=== PATIENT | female | born 1930 | race Caucasian/White ===

== ENCOUNTER 2019-06-01 11:32 | Observation (INO) | payer MEDICARE ==
[2019-06-01 11:52] LABS: ABSOLUTE LYMPHOCYTES (AUTO) 1.2 10^3/uL (0.5-4.7); ABSOLUTE MONOCYTES (AUTO) 0.7 10^3/uL (0.1-1.4); ABSOLUTE NEUT (AUTO) 6.6 10^3/uL (1.7-8.2); BASOPHILS % (AUTO) 0.5 % (0-2); EOSINOPHILS % (AUTO) 0.1 % (0-6); HEMATOCRIT 33.6 % (36.0-47.0); HEMOGLOBIN 11.7 g/dL (12.0-15.5); LYMPHOCYTES % (AUTO) 14.1 % (13-45); MEAN CORPUSCULAR HGB CONC 34.8 g/dL (32.0-36.0); MEAN CORPUSCULAR VOLUME 98 fl (80-97); MONOCYTES % (AUTO) 8.7 % (3-13); PLATELET COUNT 290 10^3/uL (150-450); RED BLOOD COUNT 3.44 10^6/uL (3.72-5.28); SEGMENTED NEUTROPHILS % (AUTO) 76.6 % (42-78); TOTAL CELLS COUNTED % (AUTO) 100 %; WHITE BLOOD COUNT 8.6 10^3/uL (4.0-10.5)
[2019-06-01 11:55] LABS: INTERNATIONAL RATION (INR) 1.19
[2019-06-01 11:56] LABS: PARTIAL THROMBOPLASTIN TIME 31.6 SEC (23.5-35.8)
[2019-06-01 12:01] LABS: PROTHROMBIN TIME 15.2 SEC (11.4-15.4)
--- NOTE | 2019-06-01 12:02 | RADIOLOGY REPORT (SQ) ---
EXAM DESCRIPTION: CT HEAD WITHOUT COMPLETED DATE/TIME: 06/01/2019 11:46 am REASON FOR STUDY: stroke s/s COMPARISON: 11/16/2014 TECHNIQUE: Axial images acquired through the brain without intravenous contrast. Images reviewed wi th bone, brain and subdural windows. Additional sagittal and coronal reconstructions were generated. Images stored on PACS. All CT scanners at this facility use dose modulation, iterative reconstruction, and/or weight based d osing when appropriate to reduce radiation dose to as low as reasonably achievable (ALARA). [facility]: Dose Right [facility]: CareDose [facility]: Dose Right [facility]: Teradose 4D [facility]: [place] RADIATION DOSE: 480 mGy cm LIMITATIONS: None. FINDINGS: VENTRICLES: Normal size and contour. CEREBRUM: No masses. No hemorrhage. No midline shift. 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 CEREBELLUM: No masses. No hemorrhage. No alteration of density. No evidence for acute infarction. EXTRAAXIAL SPACES: No fluid collections. No masses. ORBITS AND GLOBE: No intra- or extraconal masses. Normal contour of globe without masses. CALVARIUM: No fracture. PARANASAL SINUSES: No fluid or mucosal thickening. SOFT TISSUES: No mass or hematoma. OTHER: No other significant finding. IMPRESSION: No CT evidence of acute stroke or hemorrhage. There is an unchanged remote infarction of the posterior right MCA territory with encephalomalacia of the parietal and temporal lobes. Findings reported to the emergency department by the CORE critical findings reporting system at the [facility] of interpretation. EVIDENCE OF ACUTE STROKE: NO. COMMENT: Quality ID # [id number]: Final reports with documentation of one or more dose reduction techniques (e.g., Automated exposure control, adjustment of the mA and/or kV according to patient size, use of iterative reconstruction technique) TECHNICAL DOCUMENTATION: JOB ID: [id number] [email or web address] ([email or web address])- All Rights Reserved Reading location - IP/workstation name: [email or web address]
[2019-06-01 12:11] LABS: ALBUMIN 4.3 g/dL (3.5-5.0); ALKALINE PHOSPHATASE 94 U/L (38-126); ANION GAP 8 (5-19); ASPARTATE AMINO TRANSFERASE 30 U/L (14-36); BILIRUBIN,DIRECT 0.3 mg/dL (0.0-0.4); BILIRUBIN,TOTAL 1.1 mg/dL (0.2-1.3); BLOOD UREA NITROGEN 26 mg/dL (7-20); CALCIUM 9.8 mg/dL (8.4-10.2); CARBON DIOXIDE 30 mmol/L (22-30); CHLORIDE 102 mmol/L (98-107); CREATINE KINASE 32 U/L (30-135); GLUCOSE 99 mg/dL (75-110); POTASSIUM 4.1 mmol/L (3.6-5.0); TOTAL PROTEIN 7.8 g/dL (6.3-8.2)
[2019-06-01 12:23] LABS: CREATINE KINASE MB 1.85 ng/mL (<4.55)
[2019-06-01 12:25] LABS: TROPONIN I 0.119 ng/mL
--- NOTE | 2019-06-01 13:05 | RADIOLOGY REPORT (SQ) ---
EXAM DESCRIPTION: CHEST SINGLE VIEW COMPLETED DATE/TIME: 06/01/2019 12:53 pm REASON FOR STUDY: stroke s/s COMPARISON: AP chest 11/16/2014 EXAM PARAMETERS: NUMBER OF VIEWS: One view. TECHNIQUE: Single frontal radiographic view of the chest acquired. RADIATION DOSE: NA LIMITATIONS: None. FINDINGS: LUNGS AND PLEURA: Blunting of the right lateral costophrenic sulcus from trace fluid or mi nimal right basilar airspace disease. Remainder of the lungs are otherwise well inflated and clear. No pneumothorax. No left pleural effu lee. MEDIASTINUM AND HILAR STRUCTURES: No masses. Contour normal. HEART AND VASCULAR STRUCTURES: Old sternotomy for aortic valve replacement. Mild cardiomegaly BONES: No acute findings. Old healed left rib fractures HARDWARE: Left-sided single lead pacemaker OTHER: No other significant finding. IMPRESSION: Trace fluid in the right lateral costophrenic sulcus Old sternotomy for aortic valve replacement. Mild stable cardiomegaly TECHNICAL DOCUMENTATION: JOB ID: [id number] [employer]- All Rights Reserved Reading location - IP/workstation name: [email or web address]
--- NOTE | 2019-06-01 13:59 | ER Document Report ---
Entered by HARI MICHEL SCRIBE 06/01/19 [id number] Acting as scribe for:TRACE FOSTER MD ED General - General Chief Complaint: S/S of Possible Stroke Stated Complaint: SLURRED SPEECH Time Seen by Provider: 06/01/19 12:58 Primary Care Provider: JASON DILLARD DO [Primary Care Provider] - Follow up as needed Mode of Arrival: Medic Information source: Patient, Relative, Emergency Med Personnel Notes: This 88 year old female patient brought in by EMS presents to the ED today with complaints of stroke-like symptoms that occurred around 10:00 AM this morning per the jarrett at bedside. Grandson states that when he woke up this morning, the patient was in the kitchen refilling her water and acting normally. Grandson states that the patient was incomprehensible and speaking "gibberish" when asked if she wanted tea moments later. Grandson notes that the tea was running down the right side of the patient's face when she began to drink and he was concerned of a possible stroke so he called EMS. Upon EMS arrival, the patient still presented with the symptoms per the grandson. EMS reports that the symptoms started to clear up en route to the ED. Upon arrival to the ED, patient states that she felt like she had the words to speak to her grandson, but she couldn't get them out. Grandson reports that the patient has bilateral leg swelling that is consistent with her baseline because the patient ambulates a lot with her walker. Grandson states that the patient recently relocated from [place] and that he is the primary customer care specialist.Grandson states that the patient did not take her coumadin yesterday or today. The patient states that she feels back to normal at this time. She did not have any chest pain or shortness of breath during the episode. At this time the patient's neurological symptoms have completely resolved and there are no deficits. She is not a TPA candidate. TRAVEL OUTSIDE OF THE [place] IN LAST 30 DAYS: No - Related Data Allergies/Adverse Reactions: acetaminophen [From Tylenol] Allergy (Verified 11/16/14 18:07) Penicillins Allergy (Verified 11/16/14 18:07) red dye [Red Dye] Allergy (Verified 11/16/14 21:33) Past Medical History - General Information source: Patient, Relative, [facility] Records - Social History Smoking Status: Never Smoker Cigarette use (# per day): No Chew tobacco use (# tins/day): No Smoking Education Provided: No Frequency of alcohol use: None Drug Abuse: None Lives with: Family Family History: Reviewed & Not Pertinent Patient has suicidal ideation: No Patient has homicidal ideation: No - Past Medical History Cardiac Medical History: Reports: Hx Congestive Heart Failure, Hx Heart Attack, Hx Hypertension Past Surgical History: Reports: Hx Cardiac Catheterization, Hx Cardiac Surgery - Mechanical aortic valve August 2002, Hx Cholecystectomy, Hx Coronary Artery Bypass Graft - 2000, Hx Hysterectomy, Hx Orthopedic Surgery - Right knee replacement, Hx Pacemaker - August [address] [facility], Hx Vascular Surgery - aorta Review of Systems - Review of Systems Constitutional: No symptoms reported EENT: No symptoms reported Cardiovascular: No symptoms reported Respiratory: No symptoms reported Gastrointestinal: No symptoms reported Genitourinary: No symptoms reported Female Genitourinary: No symptoms reported Musculoskeletal: See HPI, Leg swelling Skin: No symptoms reported Hematologic/Lymphatic: No symptoms reported Neurological/Psychological: See HPI, Other - Stroke-like symptoms -: Yes All other systems reviewed and negative Physical Exam - Vital signs Vitals: Pulse Ox 89 L 06/01/19 11:40 - General General appearance: Other - Demented - HEENT Head: Normocephalic, Atraumatic Eyes: Normal Pupils: PERRL Neck: No: Carotid bruit - Respiratory Respiratory status: No respiratory distress Chest status: Nontender Breath sounds: Normal Chest palpation: Normal - Cardiovascular Rhythm: Regular - with mechanical valve click Heart sounds: Normal auscultation Murmur: Yes - Systolic - Abdominal Inspection: Normal Distension: No distension Bowel sounds: Normal Tenderness: Nontender Organomegaly: No organomegaly - Back Back: Normal, Nontender - Extremities General upper extremity: Normal inspection General lower extremity: Tender - RLE is firm and tender compared to LLE, Edema - Edema present bilaterally, more on the right LE - Neurological Neuro grossly intact: Yes Orientation: AAOx4 Notes: No motor weakness. - Psychological Associated symptoms: Other - Demented - Skin Skin Temperature: Warm Skin Moisture: Dry Skin Color: Normal Course - Vital Signs Vital signs: Temp Pulse Resp BP Pulse Ox 98.0 F 75 26 H 158/67 H 99 06/01/19 12:08 06/01/19 11:59 06/01/19 12:01 06/01/19 12:01 06/01/19 12:01 - Laboratory Result Diagrams: 06/01/19 11:03 06/01/19 11:03 Laboratory results interpreted by me: 06/01/19 06/01/19 06/01/19 11:03 11:03 13:49 RBC 3.44 L Hgb 11.7 L Hct 33.6 L MCV 98 H MCH 34.0 H BUN 26 H Est GFR (MDRD) Non-Af 56 L Urine Protein 30 H Urine Urobilinogen 2.0 H - Diagnostic Test Radiology reviewed: Image reviewed, Reports reviewed - Chest x-ray shows mild stable cardiomegaly with old healed left rib fractures. CT scan of the head shows an old posterior right MCA territory CVA with encephalomalacia. No acute changes. - EKG Interpretation by Me EKG shows normal: [place], Intervals, QRS Complexes. abnormal: ST-T Waves - Inferior and lateral biphasic T waves new compared to 11/17/2014 Rate: Normal - 70 Rhythm: Other - Ventricular paced rhythm When compared to previous EKG there are: Changes noted - Biphasic inferior and lateral T waves which are new compared to 11/17/2014 Critical Care Note - Critical Care Note Total time excluding time spent on procedures (mins): 35 Discharge - Discharge Clinical Impression: Transient ischemic attack (TIA), [facility] aortic valve , Subtherapeutic international normalized ratio (INR) Condition: Stable Disposition: ADMITTED INPATIENT Admitting Provider: Ayesha (Hospitalist) Unit Admitted: IMCU Referrals: JASON DILLARD DO [Primary Care Provider] - Follow up as needed Scribe Attestation: 06/01/19 14:25 I personally performed the services described in the documentation, reviewed and edited the documentation which was dictated to the scribe in my presence, and it accurately records my words and actions. I personally performed the services described in the documentation, reviewed and edited the documentation which was dictated to the scribe in my presence, and it accurately records my words and actions.
[2019-06-01 14:27] LABS: APPEARANCE,URINE CLEAR; BILIRUBIN,URINE NEGATIVE (NEGATIVE); COLOR,URINE YELLOW; GLUCOSE, URINE NEGATIVE (NEGATIVE); KETONES,URINE NEGATIVE (NEGATIVE); LEUKOCYTE ESTERASE,URINE NEGATIVE (NEGATIVE); NITRITE,URINE NEGATIVE (NEGATIVE); PROTEIN,URINE 30 mg/dL (NEGATIVE); URINE SPECIFIC GRAVITY 1.015
--- NOTE | 2019-06-01 16:33 | PDOC H&P ---
History of Present Illness Admission Date/PCP: 06/01/19 15:24 JASON DILLARD DO Patient complains of: aphasia History of Present Illness: RAGHU PHAN is a 88 year old female with past medical history of aortic valve replacement ([facility]) in 2002 on Coumadin, pacemaker placement for unstable bradyarrhythmia in 2014, history of remote left leg DVT, CAD with prior CABG, CHF, dementia, history of right MCA CVA, hypertension and hyperlipidemia who was brought in due to speech difficulty. Patient's grandson/the POA is in the bedside. He reports that patient was apparently fine aside from having some nausea and an episode of vomiting yesterday. She was apparently well last night until around 10 in the morning today when she started sounding gibberish. Patient was also noted to have expressive aphasia. She reported she knew what to say but was unable to do so. There was no reported facial droop, sensory or motor weakness. Patient was brought in by EMS and deficits reportedly resolved in route to the ER. Upon encounter, patient's deficits have resolved. She has clear and fluent speech. No neurologic deficit appreciated on neuro examination. She denies chest pain, shortness of breath, dizziness or headache. 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 She does have a subtherapeutic INR. Grandson says that she might have missed 3 days of Coumadin as they left town. Past Medical History Cardiac Medical History: Reports: Congestive Heart Failure, Myocardial Infarction, Hypertension Psychiatric Medical History: Denies: Depression Past Surgical History Past Surgical History: Reports: Cardiac Catheterization, Cholecystectomy, Coronary Artery Bypass Graft - 2000, Hysterectomy, Orthopedic Surgery - Right knee replacement, Pacemaker - August [address] [facility], Vascular Surgery - aorta Social History Lives with: Family Smoking Status: Never Smoker Electronic Cigarette use?: No Frequency of Alcohol Use: None Hx Recreational Drug Use: No Hx Prescription Drug Abuse: No Family History Family History: Reviewed & Not Pertinent Parental Family History Reviewed: Yes - No premature CAD Children Family History Reviewed: No Sibling(s) Family History Reviewed.: No Medication/Allergy Home Medications: Metoprolol Succinate [Toprol Xl 25 mg Tab.sr] 25 mg PO DAILY 06/01/19 Sertraline HCl [Zoloft 50 mg Tablet] 50 mg PO DAILY 06/01/19 Warfarin Sodium [Coumadin 5 mg Tablet] 5 mg PO QHS 06/01/19 Aspirin [Aspirin 81 mg Chewable Tablet] 81 mg PO DAILY #30 tab.chew 06/02/19 Atorvastatin Calcium [Lipitor 20 mg Tablet] 20 mg PO QHS #30 tablet 06/02/19 Enoxaparin Sodium [Lovenox Inj 60 mg/0.6 ml Disp.syrin] 50 mg SUBCUT Q12 #10 disp.syrin 06/02/19 Allergies/Adverse Reactions: acetaminophen [From Tylenol] Allergy (Verified 11/16/14 18:07) Penicillins Allergy (Verified 11/16/14 18:07) red dye [Red Dye] Allergy (Verified 11/16/14 21:33) Review of Systems All systems: reviewed and no additional remarkable complaints except as stated - As mentioned in HPI Physical Exam Vital Signs: Temp Pulse Resp BP Pulse Ox 98.0 F 75 26 H 158/67 H 99 06/01/19 12:08 06/01/19 11:59 06/01/19 12:01 06/01/19 12:01 06/01/19 12:01 Intake & Output 05/31/19 06/01/19 06/02/19 06:59 06:59 06:59 Weight 118 lb 4.095 oz General appearance: PRESENT: no acute distress, well-developed, well-nourished Head exam: PRESENT: atraumatic, normocephalic Eye exam: PRESENT: conjunctiva pink, EOMI, PERRLA. ABSENT: scleral icterus Ear exam: PRESENT: normal external ear exam Mouth exam: PRESENT: moist, tongue midline Neck exam: ABSENT: carotid bruit, JVD, lymphadenopathy, thyromegaly Respiratory exam: PRESENT: clear to auscultation yomaira. ABSENT: rales, rhonchi, wheezes Cardiovascular exam: PRESENT: RRR. ABSENT: diastolic murmur, rubs, systolic murmur Pulses: PRESENT: normal dorsalis pedis pul GI/Abdominal exam: PRESENT: normal bowel sounds, soft. ABSENT: distended, guarding, mass, organolmegaly, rebound, tenderness Rectal exam: PRESENT: deferred Extremities exam: PRESENT: full ROM, pedal edema, +2 edema. ABSENT: calf tenderness, clubbing Neurological exam: PRESENT: alert, awake, oriented to person, oriented to place, oriented to time, oriented to situation, CN II-XII grossly intact. ABSENT: motor sensory deficit Results Laboratory Results: 06/01/19 11:03 06/01/19 11:03 06/01/19 06/01/19 06/01/19 11:03 11:03 13:49 WBC 8.6 RBC 3.44 L Hgb 11.7 L Hct 33.6 L MCV 98 H MCH 34.0 H MCHC 34.8 RDW 14.0 Plt Count 290 Seg Neutrophils % 76.6 Sodium 139.9 Potassium 4.1 Chloride 102 Carbon Dioxide 30 Anion Gap 8 BUN 26 H Creatinine 0.94 Est GFR ( Amer) > 60 Glucose 99 Calcium 9.8 Total Bilirubin 1.1 AST 30 Alkaline Phosphatase 94 Total Protein 7.8 Albumin 4.3 Urine Color YELLOW Urine Appearance CLEAR Urine pH 7.0 Ur Specific [place] 1.015 Urine Protein 30 H Urine Glucose (UA) NEGATIVE Urine Ketones NEGATIVE Urine Blood NEGATIVE Urine Nitrite NEGATIVE Ur Leukocyte Esterase NEGATIVE Urine WBC (Auto) 0 Urine RBC (Auto) 8 06/01/19 06/01/19 06/01/19 11:03 11:03 13:18 Creatine Kinase 32 CK-MB (CK-2) 1.85 Troponin I 0.119 0.099 Impressions: Chest X-Ray 06/01/19 11:40 IMPRESSION: Trace fluid in the right lateral costophrenic sulcus Old sternotomy for aortic valve replacement. Mild stable cardiomegaly Head CT 06/01/19 11:40 IMPRESSION: No CT evidence of acute stroke or hemorrhage. There is an unchanged remote infarction of the posterior right MCA territory with encephalomalacia of the parietal and temporal lobes. Findings reported to the emergency department by the CORE critical findings reporting system at the time of interpretation. EVIDENCE OF ACUTE STROKE: NO. Assessment and Plan - Diagnosis (1) Transient ischemic attack (TIA) Is this a current diagnosis for this admission?: Yes Plan: CT is unremarkable aside from finding of prior CVA. We will start patient on aspirin and statin. Will check lipid panel. We will also order a carotid Dop pler. She has subtherapeutic INR. Jarrett does report that she might have missed 3 days of her Coumadin as he and her went out of town. Discussed possible need for bridging with heparin or Lovenox however jarrett is hesitant as he reports that patient had significant bleeding issue with heparin before. (2) Coronary artery disease Is this a current diagnosis for this admission?: Yes (3) Hypertension Is this a current diagnosis for this admission?: Yes (4) Subtherapeutic international normalized ratio (INR) Is this a current diagnosis for this admission?: Yes Plan: Restart Coumadin. - Time Time Spent with patient: 25-34 minutes
[2019-06-01 17:24] LABS: HEMATOCRIT 29.6 % (36.0-47.0); HEMOGLOBIN 10.1 g/dL (12.0-15.5); MEAN CORPUSCULAR HEMOGLOBIN 33.6 pg (27.0-33.4); MEAN CORPUSCULAR HGB CONC 34.3 g/dL (32.0-36.0); MEAN CORPUSCULAR VOLUME 98 fl (80-97); PLATELET COUNT 257 10^3/uL (150-450); RED BLOOD COUNT 3.02 10^6/uL (3.72-5.28); RED CELL DISTRIBUTION WIDTH 14.3 % (11.5-14.0)
[2019-06-01 18:17] LABS: CHOLESTEROL 165.63 mg/dL (0-200); TRIGLYCERIDES 68 mg/dL (<150)
--- NOTE | 2019-06-01 18:28 | ADVANCED CARE ---
- Diagnosis (1) Transient ischemic attack (TIA) Diagnosis Current: Yes (2) Coronary artery disease Diagnosis Current: Yes (3) Hypertension Diagnosis Current: Yes (4) Subtherapeutic international normalized ratio (INR) Diagnosis Current: Yes Resuscitation Status: Do Not Resuscitate Discussion: Patient is oriented to person and place. Her DPOA/grandson is at the bedside. She clearly verbalizes that she does not want any form of resuscitation or artificial tubes in her. She says she does not want to be on a breathing tube or breathing machine and does not want any chest compressions or defibrillation. She will be made a DNR/DNI. Grandson at bedside agrees.
[2019-06-01 18:30] LABS: DIRECT LDL 106 mg/dL (<100)
--- NOTE | 2019-06-01 21:27 | EKG REPORT ---
SEVERITY:- ABNORMAL ECG - VENTRICULAR-PACED RHYTHM : Confirmed by: Adeola Winston MD 01-Jun-2019 21:26:53
[2019-06-01] MEDS ORDERED: ATORVASTATIN CALCIUM 40 MG TABLET PO SCH (22:00)
[2019-06-01] MEDS ORDERED: WARFARIN SODIUM 5 MG TABLET PO SCH (22:00)
--- NOTE | 2019-06-02 02:00 | RADIOLOGY REPORT (SQ) ---
EXAM DESCRIPTION: US CAROTID DOPPLER BILATERAL COMPLETED DATE/TME: 06/01/2019 16:25 CLINICAL HISTORY: 88 years, Female, TIA COMPARISON: None. TECHNIQUE: LIMITATIONS: None. FINDINGS: Technique: Real time multiplanar ultrasonographic motta scale, color Doppler, and pulse Doppler imaging was obtained of the extracranial carotid and vertebral systems. 43 static images were obtained. Right: Mild plaque is identified. Peak systolic and diastolic velocities within the common carotid, internal carotid, and external carotid arteries measure 88/7, 117/16, and 77 respectively. Antegrade flow is seen within the vertebral artery. Left: Mild plaque is identified. Peak systolic and diastolic velocities within the common carotid, internal carotid, and external carotid arteries measure 74/10, 122/21, and 145 respectively. Antegrade flow is seen within the vertebral artery. Impression: No evidence of hemodynamically significant stenosis of the extracranial carotid or vertebral systems. Internal carotid artery stenosis quantification and significance is defined utilizing the methods of [place] Symptomatic Carotid Endarterectomy Trial (NASCET). IMPRESSION: No evidence of hemodynamically significant stenosis of the extracranial carotid and vertebral system copyright 2010 [employer]- All Rights Reserved
[2019-06-02 05:53] LABS: INTERNATIONAL RATION (INR) 1.28
[2019-06-02] MEDS ORDERED: ENOXAPARIN SODIUM INJ 60 MG/0.6 ML DISP.SYRIN SUBCUT SCH (10:00)
[2019-06-02] MEDS ORDERED: ASPIRIN 81 MG TABLET, CHEWABLE PO SCH (10:00)
[2019-06-02 17:09] VITALS: BP 149/58
--- NOTE | 2019-06-03 12:01 | PDOC DISCHARGE SUMMARY ---
Impression - Admit/DC Date/PCP Admission Date/Primary Care Provider: 06/01/19 15:24 JASON DILLARD DO Discharge Date: 06/02/19 - Discharge Diagnosis (1) Transient ischemic attack (TIA) Is this a current diagnosis for this admission?: Yes (2) Coronary artery disease Is this a current diagnosis for this admission?: Yes (3) Hypertension Is this a current diagnosis for this admission?: Yes (4) Subtherapeutic international normalized ratio (INR) Is this a current diagnosis for this admission?: Yes - Additional Information Resuscitation Status: Do Not Resuscitate Discharge Activity: Activity As Tolerated, Balance Activity w/Rest Referrals: DAVID SON MD [NO LOCAL MD] - 06/24/19 3:30 pm ([place] office.) JASON DILLARD DO [Primary Care Provider] - 06/14/19 2:50 pm Prescriptions: Aspirin [Aspirin 81 mg Chewable Tablet] 81 mg PO DAILY #30 tab.chew Atorvastatin Calcium [Lipitor 20 mg Tablet] 20 mg PO QHS #30 tablet Enoxaparin Sodium [Lovenox Inj 60 mg/0.6 ml Disp.syrin] 50 mg SUBCUT Q12 #10 disp.syrin Home Medications: Metoprolol Succinate [Toprol Xl 25 mg Tab.sr] 25 mg PO DAILY 06/01/19 Sertraline HCl [Zoloft 50 mg Tablet] 50 mg PO DAILY 06/01/19 Warfarin Sodium [Coumadin 5 mg Tablet] 5 mg PO QHS 06/01/19 Aspirin [Aspirin 81 mg Chewable Tablet] 81 mg PO DAILY #30 tab.chew 06/02/19 Atorvastatin Calcium [Lipitor 20 mg Tablet] 20 mg PO QHS #30 tablet 06/02/19 Enoxaparin Sodium [Lovenox Inj 60 mg/0.6 ml Disp.syrin] 50 mg SUBCUT Q12 #10 disp.syrin 06/02/19 History of Present Illiness History of Present Illness: RAGHU PHAN is a 88 year old female with past medical history of aortic valve replacement ([facility]) in 2002 on Coumadin, pacemaker placement for unstable bradyarrhythmia in 2014, history of remote left leg DVT, CAD with prior CABG, CHF, dementia, history of right MCA CVA, hypertension and hyperlipidemia who was brought in due to speech difficulty. Patient's grandson/the POA is in the bedside. He reports that patient was apparently fine aside from having some nausea and an episode of vomiting yesterday. She was apparently well last night until around 10 in the morning today when she started sounding gibberish. Patient was also noted to have expressive aphasia. She reported she knew what to say but was unable to do so. There was no reported facial droop, sensory or motor weakness. Patient was brought in by EMS and deficits reportedly resolved in route to the ER. Upon encounter, patient's deficits have resolved. She has clear and fluent speech. No neurologic deficit appreciated on neuro examination. She denies chest pain, shortness of breath, dizziness or headache. 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 She does have a subtherapeutic INR. Letha says that she might have missed 3 days of Coumadin as they left town. Hospital Course Hospital Course: Patient was admitted for TIA. She did not have any deficits anymore upon admission. Patient found to have subtherapeutic INR patient does have a [facility] aortic valve. She was started on atorvastatin and aspirin. CT head was unremarkable. Lipid panel did come back as elevated LDL. Cardioverted Dopplers showed mild plaques but no significant stenosis or abnormalities. Discussed importance of compliance to Coumadin and keeping the INR at therapeutic level due to her having an aortic valve. Patient's grandson/the POA initially was concerned about bridging her with heparin. Later he clarified that it was actually her INR being supratherapeutic that caused her to have bleeding issues in the past. We discussed the benefits of adding aspirin to her regimen with her recent TIA and the risk of bleeding and he verbalized understanding. Also discussed the importance of bridging with heparin or Lovenox while being resumed on Coumadin and they are amenable to this plan. She will closely follow-up with his PCP and her charge accounts audit clerk. Was also given confirmation that home health will closely follow-up with her repeat INR in the next 3 days for adjustment of her Coumadin and further directions about stopping and continuing Lovenox until INR becomes therapeutic. Physical Exam Vital Signs: Temp Pulse Resp BP Pulse Ox 97.6 F 67 16 149/58 H 93 06/02/19 17:04 06/02/19 17:04 06/02/19 17:04 06/02/19 17:04 06/02/19 17:04 Intake & Output 06/01/19 06/02/19 06/03/19 06:59 06:59 06:59 Weight 118 lb 2.684 oz General appearance: PRESENT: no acute distress, well-developed, well-nourished Head exam: PRESENT: atraumatic, normocephalic Eye exam: PRESENT: conjunctiva pink, EOMI, PERRLA. ABSENT: scleral icterus Ear exam: PRESENT: normal external ear exam Mouth exam: PRESENT: moist, tongue midline Neck exam: ABSENT: carotid bruit, JVD, lymphadenopathy, thyromegaly Respiratory exam: PRESENT: clear to auscultation yomaira. ABSENT: rales, rhonchi, wheezes Cardiovascular exam: PRESENT: RRR. ABSENT: diastolic murmur, rubs, systolic murmur Pulses: PRESENT: normal dorsalis pedis pul GI/Abdominal exam: PRESENT: normal bowel sounds, soft. ABSENT: distended, guarding, mass, organolmegaly, rebound, tenderness Rectal exam: PRESENT: deferred Extremities exam: PRESENT: full ROM. ABSENT: calf tenderness, clubbing, pedal edema Neurological exam: PRESENT: alert, awake, oriented to person, oriented to place, oriented to time, oriented to situation, CN II-XII grossly intact. ABSENT: motor sensory deficit Results Laboratory Results: WBC 7.0 10^3/uL (4.0-10.5) 06/01/19 17:13 RBC 3.02 10^6/uL (3.72-5.28) L 06/01/19 17:13 Hgb 10.1 g/dL (12.0-15.5) L 06/01/19 17:13 Hct 29.6 % (36.0-47.0) L 06/01/19 17:13 MCV 98 fl (80-97) H 06/01/19 17:13 MCH 33.6 pg (27.0-33.4) H 06/01/19 17:13 MCHC 34.3 g/dL (32.0-36.0) 06/01/19 17:13 RDW 14.3 % (11.5-14.0) H 06/01/19 17:13 Plt Count 257 10^3/uL (150-450) 06/01/19 17:13 Lymph % (Auto) 14.1 % (13-45) 06/01/19 11:03 [place] % (Auto) 8.7 % (3-13) 06/01/19 11:03 Eos % (Auto) 0.1 % (0-6) 06/01/19 11:03 Baso % (Auto) 0.5 % (0-2) 06/01/19 11:03 Absolute Neuts (auto) 6.6 10^3/uL (1.7-8.2) 06/01/19 11:03 Absolute Lymphs (auto) 1.2 10^3/uL (0.5-4.7) 06/01/19 11:03 Absolute Monos (auto) 0.7 10^3/uL (0.1-1.4) 06/01/19 11:03 Absolute Eos (auto) 0.0 10^3/uL (0.0-0.6) 06/01/19 11:03 Absolute Basos (auto) 0.0 10^3/uL (0.0-0.2) 06/01/19 11:03 Seg Neutrophils % 76.6 % (42-78) 06/01/19 11:03 PT 16.0 SEC (11.4-15.4) H 06/02/19 05:08 INR 1.28 06/02/19 05:08 APTT 28.5 SEC (23.5-35.8) 06/01/19 15:04 Sodium 139.9 mmol/L (137-145) 06/01/19 11:03 Potassium 4.1 mmol/L (3.6-5.0) 06/01/19 11:03 Chloride 102 mmol/L (98-107) 06/01/19 11:03 Carbon Dioxide 30 mmol/L (22-30) 06/01/19 11:03 Anion Gap 8 (5-19) 06/01/19 11:03 BUN 26 mg/dL (7-20) H 06/01/19 11:03 Creatinine 0.94 mg/dL (0.52-1.25) 06/01/19 11:03 Est GFR ( Amer) > 60 (>60) 06/01/19 11:03 Est GFR (MDRD) Non-Af 56 (>60) L 06/01/19 11:03 Glucose 99 mg/dL (75-110) 06/01/19 11:03 POC Glucose 100 mg/dL (70-110) 06/01/19 12:01 Calcium 9.8 mg/dL (8.4-10.2) 06/01/19 11:03 Total Bilirubin 1.1 mg/dL (0.2-1.3) 06/01/19 11:03 Direct Bilirubin 0.3 mg/dL (0.0-0.4) 06/01/19 11:03 Neonat Total Bilirubin Not Reportable 06/01/19 11:03 Neonat Direct Bilirubin Not Reportable 06/01/19 11:03 Neonat Indirect Bili Not Reportable 06/01/19 11:03 AST 30 U/L (14-36) 06/01/19 11:03 ALT 15 U/L (<35) 06/01/19 11:03 Alkaline Phosphatase 94 U/L (38-126) 06/01/19 11:03 Creatine Kinase 32 U/L (30-135) 06/01/19 11:03 CK-MB (CK-2) 1.85 ng/mL (<4.55) 06/01/19 11:03 Troponin I 0.099 ng/mL 06/01/19 13:18 Total Protein 7.8 g/dL (6.3-8.2) 06/01/19 11:03 Albumin 4.3 g/dL (3.5-5.0) 06/01/19 11:03 Triglycerides 68 mg/dL (<150) 06/01/19 17:13 Cholesterol 165.63 mg/dL (0-200) 06/01/19 17:13 LDL Cholesterol Direct 106 mg/dL (<100) H 06/01/19 17:13 VLDL Cholesterol 14.0 mg/dL (10-31) 06/01/19 17:13 HDL Cholesterol 45 mg/dL (>40) 06/01/19 17:13 Urine Color YELLOW 06/01/19 13:49 Urine Appearance CLEAR 06/01/19 13:49 Urine pH 7.0 (5.0-9.0) 06/01/19 13:49 Ur Specific [place] 1.015 06/01/19 13:49 Urine Protein 30 mg/dL (NEGATIVE) H 06/01/19 13:49 Urine Glucose (UA) NEGATIVE mg/dL (NEGATIVE) 06/01/19 13:49 Urine Ketones NEGATIVE mg/dL (NEGATIVE) 06/01/19 13:49 Urine Blood NEGATIVE (NEGATIVE) 06/01/19 13:49 Urine Nitrite NEGATIVE (NEGATIVE) 06/01/19 13:49 Urine Bilirubin NEGATIVE (NEGATIVE) 06/01/19 13:49 Urine Urobilinogen 2.0 mg/dL (<2.0) H 06/01/19 13:49 Ur Leukocyte Esterase NEGATIVE (NEGATIVE) 06/01/19 13:49 Urine WBC (Auto) 0 /HPF 06/01/19 13:49 Urine RBC (Auto) 8 /HPF 06/01/19 13:49 Squamous Epi Cells Auto <1 /HPF 06/01/19 13:49 Urine Mucus (Auto) RARE /LPF 06/01/19 13:49 Urine Ascorbic Acid NEGATIVE (NEGATIVE) 06/01/19 13:49 06/01/19 06/01/19 11:03 13:18 CK-MB (CK-2) 1.85 Troponin I 0.119 0.099 Impressions: Chest X-Ray 06/01/19 11:40 IMPRESSION: Trace fluid in the right lateral costophrenic sulcus Old sternotomy for aortic valve replacement. Mild stable cardiomegaly Head CT 06/01/19 11:40 IMPRESSION: No CT evidence of acute stroke or hemorrhage. There is an unchanged remote infarction of the posterior right MCA territory with encephalomalacia of the parietal and temporal lobes. Findings reported to the emergency department by the [facility] critical findings reporting system at the time of interpretation. EVIDENCE OF ACUTE STROKE: NO. Carotid Doppler Study 06/01/19 16:25 IMPRESSION: No evidence of hemodynamically significant stenosis of the extracranial carotid and vertebral system copyright 2010 [email or web address]- All Rights Reserved Stroke Is this a Stroke Patient?: No Acute Heart Failure - Is this a Heart Failure Patient?: No
== END 2019-06-02 17:42 | disposition home health service (06) ==
LOC: ER 11:32 → INTOOBSV 15:24 → EH 15:24 → 3S 17:41
PROVIDERS: ADMIT Internal Medicine; ATTEND Internal Medicine
DX: G45.9 Transient cerebral ischemic attack, unspecified (principal); I25.10 Atherosclerotic heart disease of native coronary artery without angina pectoris; T45.516A Underdosing of anticoagulants, initial encounter; Z51.81 Encounter for therapeutic drug level monitoring; I11.0 Hypertensive heart disease with heart failure; I50.9 Heart failure, unspecified; F03.90 Unspecified dementia, unspecified severity, without behavioral disturbance, psychotic disturbance, mood disturbance, and anxiety; R60.0 Localized edema; E78.5 Hyperlipidemia, unspecified; R11.2 Nausea with vomiting, unspecified; I25.2 Old myocardial infarction; Z79.01 Long term (current) use of anticoagulants; Z66 Do not resuscitate; Z95.4 Presence of other heart-valve replacement; Z95.0 Presence of cardiac pacemaker; Z86.718 Personal history of other venous thrombosis and embolism; Z95.1 Presence of aortocoronary bypass graft; Z86.73 Personal history of transient ischemic attack (TIA), and cerebral infarction without residual deficits; Z90.49 Acquired absence of other specified parts of digestive tract; Z79.82 Long term (current) use of aspirin
CPT/HCPCS: 93005; 99291; 36415 ×2; 82553; 82962; 82550; 85025; 85610 ×2; 85730; 80053; 81001; 84484; 80061; 93880; 71045; 70450; 93010; G0378 ×3; A9270 ×3; J3490 ×2; J1650